=== PATIENT | female | born 1975 | race Two or more races ===

== ENCOUNTER 2016-10-03 18:06 | Emergency (ER) | payer OTHER ==
[~2016-10-03] VITALS: Ht 167.6 cm; Wt 99.3 kg
[2016-10-03] MEDS ORDERED: IV NORMAL SALINE 1000ML BAG 1,000 ML IV SCH (18:29)
[2016-10-03] MEDS ORDERED: ONDANSETRON PF 4 MG/2 ML VIAL. IV ONE (18:30)
[2016-10-03] MEDS ORDERED: 0.9 % SODIUM CHLORIDE 10 ML DISP.SYRIN. IV PRN (18:30)
[2016-10-03 18:46] LABS: BASO % 1 % (0-3); EOS % 1 % (0-3); HEMATOCRIT 31.4 % (36.0-47.0); LYMPH # 1.8 x10^3/uL (1.0-4.8); LYMPH % 41 % (24-48); MEAN CORPUSCULAR HEMOGLOBIN 25 pg (25-35); MEAN CORPUSCULAR HGB CONC 32 g/dL (31-37); MEAN CORPUSCULAR VOLUME 80 fL (79-100); MONO % 5 % (0-9); NEUT % 52 % (31-73); PLATELET COUNT 256 x10^3/uL (140-400); RED BLOOD COUNT 3.93 x10^6/uL (3.50-5.40); RED CELL DISTRIBUTION WIDTH 19.3 % (11.5-14.5); WHITE BLOOD COUNT 4.5 x10^3/uL (4.0-11.0)
[2016-10-03 18:59] LABS: CALCIUM 8.6 mg/dL (8.5-10.1); CREATININE 0.6 mg/dL (0.6-1.0); GFR 110.7; POTASSIUM 3.8 mmol/L (3.5-5.1)
[2016-10-03 19:05] LABS: ALBUMIN 3.5 g/dL (3.4-5.0); ALBUMIN/GLOBULIN RATIO 0.8 (1.0-1.7); TOTAL BILIRUBIN 0.2 mg/dL (0.2-1.0); TOTAL PROTEIN 7.8 g/dL (6.4-8.2)
[2016-10-03 19:20] LABS: BILIRUBIN,URINE NEGATIVE (NEG); GLUCOSE,URINE NEGATIVE (NEG); NITRITE,URINE NEGATIVE (NEG); PH,URINE 5.5; PROTEIN,URINE NEGATIVE (NEG-TRACE); UROBILINOGEN,URINE 0.2 mg/dL (0.2 mg/dL)
[2016-10-03 19:31] LABS: NEG OBC UR NEG; POS OBC UR POS
[2016-10-03 19:33] LABS: BACTERIA,URINE 0 /HPF (0-FEW); SQUAMOUS EPITHELIAL CELL,UR FEW /LPF; WBC,URINE OCC /HPF (0-4)
[2016-10-03 19:35] VITALS: BP 88/48
[2016-10-03] MEDS ORDERED: ONDA4TAB10 PO (19:47)
--- NOTE | 2016-10-03 19:47 | PHYS DOC ---
Past Medical History Past Medical History: No Pertinent History Past Surgical History: Cholecystectomy, , Other Additional Past Surgical Histo: GASTRIC SLEEVE Alcohol Use: Occasionally Drug Use: None Adult General Chief Complaint Chief Complaint: ABDOMINAL PAIN HPI HPI Patient is a 41 year old pleasant female with history of gastric placement prior tubal ligation, cholecystectomy, prior C-sections 3 who presents with sudden onset of nausea and vomiting after eating at a [employer] and having a glass of wine. Although she is also was 110 pounds since her gastric sleeve placement she's never experienced the overeating sensation by having too much food or fluid at one point in time. She said she maybe had some epigastric pain after drinking the wine she really became diaphoretic. Pain went from the epigastrium to the back of the throat and she breaths several times. She denies any fever, chills, diarrhea cause constipation or other symptoms. She denies any trauma denies any travel recently antibiotic. Patient is feeling almost normal at this time although she is feeling mildly nauseated. Depression likely overextension of stomach secondary to gastric sleeve reduction. The mechanical extraction is not entirely impossible patient will have to acute abdominal series, fluids antiemetics and an evaluation for possible obstruction with CMP CBC and urinalysis. Review of Systems Review of Systems Constitutional: Denies fever or chills [] Eyes: Denies change in visual acuity, redness, or eye pain [] HENT: Denies nasal congestion or sore throat [] Respiratory: Denies cough or shortness of breath [] Cardiovascular: No additional information not addressed in HPI [] GI: Denies abdominal pain, nausea, vomiting, bloody stools or diarrhea [] : Denies dysuria or hematuria [] Musculoskeletal: Denies back pain or joint pain [] Integument: Denies rash or skin lesions [] Neurologic: Denies headache, focal weakness or sensory changes [] Endocrine: Denies polyuria or polydipsia [] Current Medications Current Medications Current Medications Medications (Trade) Dose Ordered Sig/Silvana Start Time Stop Time Status Last Admin Dose Admin Ondansetron HCl (Zofran) 4 mg 1X ONCE 10/03/16 18:30 10/03/16 18:34 DC 10/03/16 19:13 4 MG Sodium Chloride (Normal Saline Flush) 10 ml QSHIFT PRN 10/03/16 18:30 Allergies Allergies Allergies Coded Allergies Type Severity Reaction Last Updated Verified No Known Drug Allergies 10/03/16 No Physical Exam Physical Exam Constitutional: Well developed, well nourished, no acute distress, non-toxic appearance. [] HENT: Normocephalic, atraumatic, bilateral external ears normal, oropharynx moist, no oral exudates, nose normal. [] Eyes: PERRLA, EOMI, conjunctiva normal, no discharge. [] Neck: Normal range of motion, no tenderness, supple, no stridor. [] Cardiovascular:Heart rate regular rhythm, no murmur [] Lungs & Thorax: Bilateral breath sounds clear to auscultation [] Abdomen: Bowel sounds normal, soft, no tenderness, no masses, no pulsatile masses. [] Skin: Warm, dry, no erythema, no rash. [] Back: No tenderness, no CVA tenderness. [] Extremities: No tenderness, no cyanosis, no clubbing, ROM intact, no edema. [] Neurologic: Alert and oriented X 3, normal motor function, normal sensory function, no focal deficits noted. [] Psychologic: Affect normal, judgement normal, mood normal. [] Current Patient Data Vital Signs Vital Signs Date Time Temp Pulse Resp B/P (MAP) Pulse Ox O2 Delivery O2 Flow Rate FiO2 10/03/16 18:20 97.4 67 20 98/52 (67) 99 Room Air 97.4 Lab Values Laboratory Tests Test 10/03/16 18:20 10/03/16 19:12 White Blood Count 4.5 x10^3/uL (4.0-11.0) Red Blood Count 3.93 x10^6/uL (3.50-5.40) Hemoglobin 10.0 g/dL (12.0-15.5) L Hematocrit 31.4 % (36.0-47.0) L Mean Corpuscular Volume 80 fL (79-100) Mean Corpuscular Hemoglobin 25 pg (25-35) Mean Corpuscular Hemoglobin Concent 32 g/dL (31-37) Red Cell Distribution Width 19.3 % (11.5-14.5) H Platelet Count 256 x10^3/uL (140-400) Neutrophils (%) (Auto) 52 % (31-73) Lymphocytes (%) (Auto) 41 % (24-48) Monocytes (%) (Auto) 5 % (0-9) Eosinophils (%) (Auto) 1 % (0-3) Basophils (%) (Auto) 1 % (0-3) Neutrophils # (Auto) 2.3 x10^3uL (1.8-7.7) Lymphocytes # (Auto) 1.8 x10^3/uL (1.0-4.8) Monocytes # (Auto) 0.2 x10^3/uL (0.0-1.1) Eosinophils # (Auto) 0.1 x10^3/uL (0.0-0.7) Basophils # (Auto) 0.0 x10^3/uL (0.0-0.2) Sodium Level 143 mmol/L (136-145) Potassium Level 3.8 mmol/L (3.5-5.1) Chloride Level 109 mmol/L (98-107) H Carbon Dioxide Level 26 mmol/L (21-32) Anion Gap 8 (6-14) Blood Urea Nitrogen 15 mg/dL (7-20) Creatinine 0.6 mg/dL (0.6-1.0) Estimated GFR (Cockcroft-Gault) 110.7 BUN/Creatinine Ratio 25 (6-20) H Glucose Level 89 mg/dL (70-99) Calcium Level 8.6 mg/dL (8.5-10.1) Total Bilirubin 0.2 mg/dL (0.2-1.0) Aspartate Amino Transferase (AST) 28 U/L (15-37) Alanine Aminotransferase (ALT) 24 U/L (14-59) Alkaline Phosphatase 65 U/L (46-116) Total Protein 7.8 g/dL (6.4-8.2) Albumin 3.5 g/dL (3.4-5.0) Albumin/Globulin Ratio 0.8 (1.0-1.7) L Lipase 166 U/L (73-393) Urine Collection Type U cath Urine Color Yellow Urine Clarity Clear Urine pH 5.5 Urine Specific [place] 1.025 Urine Protein Negative mg/dL (NEG-TRACE) Urine Glucose (UA) Negative mg/dL (NEG) Urine Ketones (Stick) Negative mg/dL (NEG) Urine Blood Moderate (NEG) Urine Nitrite Negative (NEG) Urine Bilirubin Negative (NEG) Urine Urobilinogen Dipstick 0.2 mg/dL (0.2 mg/dL) Urine Leukocyte Esterase Negative (NEG) Urine RBC 6-10 /HPF (0-2) Urine WBC Occ /HPF (0-4) Urine Squamous Epithelial Cells Few /LPF Urine Bacteria 0 /HPF (0-FEW) Urine Mucus Marked /LPF Urine Test Negative (NEG) Laboratory Tests 10/03/16 18:20 Laboratory Tests 10/03/16 18:20 EKG EKG [] Radiology/Procedures Radiology/Procedures [] 3 view acute abdominal series done at 1850 3 PM 10/03/2016 demonstrates no significant bowel gas pattern no air-fluid levels are is obstruction. No subdiaphragmatic air. Read by Dr. Parker. Course & Med Decision Making Course & Med Decision Making Pertinent Labs and Imaging studies reviewed. (See chart for details) she is labs include CMP CBC and urinalysis all within normal limits. Patient's acute abdominal series shows no signs of small bowel infection. Patient is currently resting antiemetics and improved nausea and vomiting abdominal pain is improved. []Patient tells me that their symptoms given during CC are improved. We reviewed labs and radiology reports with patient and any family at bedside. Feels markedly better given supportive medications will follow-up with her regular doctor for any continued symptoms. Impression nausea and vomiting abdominal pain likely related to acute volume overload. Disposition: Discharged home with follow-up with PCP as needed. Dragon Disclaimer Dragon Disclaimer This electronic medical record was generated, in whole or in part, using a voice recognition dictation system. Departure Departure Impression: Primary Impression: Abdominal pain Additional Impression: Nausea & vomiting Disposition: 01 HOME, SELF-CARE Condition: IMPROVED Referrals: GAY LAINEZ MD (PCP) Patient Instructions: Abdominal Pain, Nausea and Vomiting Additional Instructions: He is return for any new or increasing symptoms she might have or give any questions or concerns. I would advise a follow-up U primary care doctor next 12- 24 hours if symptoms continue. Please avoid eating any large amount of food or fluids to prevent recurrence of the symptoms. Return for any fever greater than 102.2. Question or concerns. Scripts Ondansetron (ZOFRAN ODT) 4 Mg Tab.rapdis 4 MG PO BID Y for NAUSEA/VOMITING for 7 Days, #14 TAB Prov: RICKIE PARKER MD 10/03/16 Problem Qualifiers RICKIE PARKER MD Oct 03, 2016 19:47
--- NOTE | 2016-10-04 06:12 | EKG ---
[facility] [address] [place] [address] Test Date: 2016-10-03 Test Time: 18:23:00 Pat Name: HUGH RODRIGUEZ Department: Room: Gender: F [employer]: : 1975 Requested By: RICKIE PARKER Order Number: [id number] Reading MD: Naomi Mariscal Measurements Intervals [place] Rate: 72 P: 24 GA: 184 QRS: 22 QRSD: 78 T: 28 QT: 382 QTc: 420 Interpretive Statements SINUS RHYTHM NORMAL EKG RI6.01 Unconfirmed report No previous ECG available for comparison Electronically Signed On 10-07-2016 22:13:47 CDT by Naomi Mariscal
--- NOTE | 2016-10-04 08:12 | RAD ---
Acute abdomen series with chest, 3 views, 10/03/2016: History: Abdominal pain with nausea and vomiting There is gas and stool scattered throughout the colon in a nonspecific pattern. No free air is seen in the abdomen. There is no evidence of organomegaly. Surgical clips are present in the right upper quadrant. Lower pelvic calcifications are probably phleboliths. There is a mild lumbar scoliosis with mild multilevel degenerative change. The heart size is normal. The lungs are clear. There is no evidence of pleural fluid. IMPRESSION: No acute abdominal abnormality is detected.
== END 2016-10-03 19:57 | disposition home or self-care (01) ==
LOC: ER 18:06
DX: R10.13 Epigastric pain (principal); R11.2 Nausea with vomiting, unspecified; R61 Generalized hyperhidrosis; Z90.49 Acquired absence of other specified parts of digestive tract; Z98.84 Bariatric surgery status
CPT/HCPCS: 36415; 74022; 80053; 81001; 81025; 83690; 85027; 93005; 96361; 96374; 99285; J2405; J7030